=== PATIENT | female | born 1945 | race Caucasian/White ===

== ENCOUNTER 2024-01-23 16:21 | Emergency (ER) | payer MEDICARE, OTHER ==
[~2024-01-23] VITALS: Ht 170.2 cm; Wt 70.8 kg
[2024-01-23 17:10] LABS: BASOPHILS % (AUTO) 0.4 % (0.0-2.0); EOSINOPHILS % (AUTO) 0.4 % (0.0-6.0); HEMATOCRIT 42 % (33-45); HEMOGLOBIN 14.4 g/dL (11.5-14.8); LYMPHOCYTES # (AUTO) 1.7 K/uL (0.8-4.8); LYMPHOCYTES % (AUTO) 15.4 % (20.0-44.0); MEAN CORPUSCULAR HEMOGLOBIN 30 PG (26.0-33.0); MEAN CORPUSCULAR HGB CONC 34 g/dl (31.0-36.0); MEAN CORPUSCULAR VOLUME 87 fL (82-100); MONOCYTES # (AUTO) 0.9 K/uL (0.1-1.30); MONOCYTES % (AUTO) 7.9 % (2.0-12.0); NEUTROPHILS # (AUTO) 8.2 K/uL (1.8-8.9); NEUTROPHILS % (AUTO) 75.9 % (43.0-81.0); PLATELET COUNT (AUTO) 166 K/uL (150-450); RED BLOOD CELL COUNT(AUTO) 4.83 MIL/uL (4.0-5.2); RED CELL DISTRIBUTION WIDTH 13.4 % (11.5-15.0); WHITE BLOOD COUNT (AUTO) 10.8 K/uL (4.3-11.0)
[2024-01-23 17:20] LABS: CALCIUM, SERUM 9.4 mg/dL (8.5-10.1); CARBON DIOXIDE 33 mmol/L (21-32); CHLORIDE 99 mmol/L (98-107); CREATININE 0.9 mg/dL (0.6-1.3); GLUCOSE 104 mg/dL (74-106); POTASSIUM 3.2 mmol/L (3.5-5.1); SODIUM SERUM 140 mmol/L (136-145); UREA NITROGEN, BLOOD 15 mg/dL (7-18)
[2024-01-23] MEDS ORDERED: CT SWABBABLE VALVE TRANS SET 1 EA INFUS.SET MC ONE (17:24)
[2024-01-23] MEDS ORDERED: IOHEXOL-350 100 ML VIAL IV ONE (17:24)
[2024-01-23] MEDS ORDERED: IV NS 0.9% 250 ML IV ONE (17:24)
[2024-01-23] MEDS: CLINDAMYCIN 900 MG in IV D5W 100 ML IV ONE (17:58)
[2024-01-23] MEDS ORDERED: POTASSIUM CHLORIDE 20 MEQ TAB.PRT.SR PO ONE (20:27)
[2024-01-23] MEDS ORDERED: HYDROCODONE/APAP 5/325MG TABLET ONE (20:27)
[2024-01-23] MEDS: HYDROCODONE/APAP 5/325MG TABLET PO ONE (20:33)
[2024-01-23] MEDS: POTASSIUM CHLORIDE 20 MEQ TAB.PRT.SR PO ONE (20:33)
[2024-01-23] MEDS ORDERED: CLIN300C12 PO (21:02)
[2024-01-23 21:04] VITALS: BP 133/89; TEMP 98.3; O2SAT 99
== END 2024-01-23 21:05 | disposition home or self-care (01) ==
LOC: ER 16:30
DX: K04.7 Periapical abscess without sinus (principal); I67.1 Cerebral aneurysm, nonruptured; K11.8 Other diseases of salivary glands; I10 Essential (primary) hypertension; Z95.0 Presence of cardiac pacemaker
CPT/HCPCS: 99285; 96365; 70487; 85025; 80048; 36415; J3490; J7060; J7050; A4223; Q9967